=== PATIENT | female | born 1945 | race Caucasian/White ===

== ENCOUNTER 2018-04-27 09:39 | Day surgery (SDC) | payer MEDICARE, MEDICAID ==
[2018-04-27] VITALS (12 sets, daily range): BP systolic 125–153; BP diastolic 64–87
[~2018-04-27] VITALS: Ht 157.5 cm; Wt 88.4 kg
[2018-04-27] MEDS ORDERED: dextrose ORAL solution 15 GM/59 ML bottle PO PRN ×2 (10:05)
[2018-04-27] MEDS ORDERED: nitroGLYCERIN 0.4mg SUBLingual tab SL PRN (10:05)
[2018-04-27] MEDS ORDERED: insulin Lispro (HumaLOG) vial - multi-dose SQ SCH (10:05)
[2018-04-27] MEDS ORDERED: diphenhydrAMINE 25mg capsule PO PRN (10:05)
[2018-04-27] MEDS ORDERED: glucagon, human recombinant 1mg kit SUBCUT PRN (10:05)
[2018-04-27] MEDS ORDERED: LORazepam 0.5 MG tablet PO PRN (10:05)
[2018-04-27] MEDS ORDERED: MESSAGE TO PHARMACY PO ONE (10:05)
[2018-04-27] MEDS ORDERED: dextrose 50%-water 50ml dispensing syringe IV PRN ×2 (10:05)
[2018-04-27] MEDS ORDERED: INSU300I SQ (10:49)
[2018-04-27] MEDS ORDERED: FLUT1AER INH (10:49)
[2018-04-27] MEDS ORDERED: ALBU8.5H8 INH (10:49)
[2018-04-27] MEDS ORDERED: CYCL-394 PO (10:49)
[2018-04-27] MEDS ORDERED: ISOS20TA6 PO (10:49)
[2018-04-27] MEDS ORDERED: CHLO25TA2 PO (10:49)
[2018-04-27] MEDS ORDERED: ISOS40TA17 PO (10:49)
[2018-04-27 11:34] LABS: HEMOGLOBIN 15.3 g/dl (12.0-16.0); MEAN PLATELET VOLUME 7.5 FL (7.4-10.4); RED BLOOD COUNT 5.07 X10'6 (4.20-5.60); RED CELL DISTRIBUTION WIDTH 13.2 % (11.5-14.5)
[2018-04-27 11:38] LABS: BASOPHILS % (AUTO) 0.6 % (0-1); EOSINOPHILS # (AUTO) 0.1 X10'3 (0-0.9); EOSINOPHILS % (AUTO) 1.8 % (0-6); HEMATOCRIT 44.4 % (35.0-45.0); LYMPHOCYTES # (AUTO) 2.4 X10'3 (1.1-4.8); LYMPHOCYTES % (AUTO) 32.6 % (21-51); MEAN CORPUSCULAR HEMOGLOBIN 30.1 PG (27.0-31.0); MEAN CORPUSCULAR HGB CONC 34.4 % (33.0-36.5); MEAN CORPUSCULAR VOLUME 87.5 FL (78-98); MONOCYTES # (AUTO) 0.7 X10'3 (0-0.9); MONOCYTES % (AUTO) 9.2 % (2-12); NEUTROPHILS # (AUTO) 4.1 X10'3 (1.8-7.7); NEUTROPHILS % (AUTO) 55.8 % (42-75); PLATELET COUNT 279 X10'3 (140-440); WHITE BLOOD COUNT 7.4 X10'3 (4.5-11.0)
[2018-04-27 11:43] LABS: ANION GAP 11 (8-16); BLOOD UREA NITROGEN 20 MG/DL (7-18); BUN/CREATININE RATIO 24.1 (6.6-38.0); CALCIUM 9.3 MG/DL (8.5-10.1); CHLORIDE 99 MMOL/L (99-107); CREATININE 0.83 MG/DL (0.40-0.90); GLUCOSE 315 MG/DL (70-104); POTASSIUM 3.3 MMOL/L (3.5-5.1); SODIUM 137 MMOL/L (135-145); TOTAL CARBON DIOXIDE 26.9 MMOL/L (24-32); eGFR 68 ML/MIN
[2018-04-27 11:44] LABS: PARTIAL THROMBOPLASTIN TIME 23 SECONDS (22-32); PROTHROMBIN TIME 9.9 SECONDS (9.0-12.0)
[2018-04-27] MEDS: normal saline 1000ml 1,000 ML IV SCH ×2 (11:49→20:05)
[2018-04-27 12:29] LABS: HEMOGLOBIN A1C 10.6 % (4.5-6.2)
[2018-04-27] MEDS ORDERED: iohexol 350MG/ML 100ml bottle IV ONE (13:08)
[2018-04-27] MEDS ORDERED: iohexol 350 MG/ML 50ML vial IV ONE (13:08)
[2018-04-27] MEDS ORDERED: fentaNYL/PF 50MCG/1 ML 2ML syringe ONE ×2 (13:08→14:04)
[2018-04-27] MEDS ORDERED: midazolam 2 mg/2 ml injection ONE ×2 (13:08→14:09)
[2018-04-27] MEDS ORDERED: LIDOcaine 1% 30ml preserv. free vial ONE (13:09)
[2018-04-27] MEDS ORDERED: pneumococcal 23-VAL P-sac vacc 25 mcg/0.5ml vial IMVAC ONE (19:20)
[2018-04-27] MEDS ORDERED: albuterol 2.5 MG/3 ML nebule NEB PRN (19:55)
[2018-04-27] MEDS ORDERED: proCHLORperazine 10 MG/2 ml inj IV PRN (20:05)
[2018-04-27] MEDS ORDERED: HYDROcodone/acetaminophen 5mg/325mg tablet PO PRN (20:05)
[2018-04-27] MEDS ORDERED: OXAZEpam 15mg capsule PO PRN (20:05)
[2018-04-27] MEDS ORDERED: HYDROcodone/acetaminophen 10/325mg tab PO PRN (20:05)
[2018-04-27] MEDS ORDERED: ondansetron/PF 4mg/2ml inj IV PRN (20:05)
[2018-04-27] MEDS ORDERED: cyclobenzaprine 10mg tablet PO SCH (21:00)
[2018-04-27] MEDS ORDERED: insulin glargine (Lantus) pen - multi-dose SQ SCH (21:00)
[2018-04-27] MEDS: BUDESONIDE 0.25 MG/2 ML AMPUL.NEB IH SCH (21:00)
[2018-04-28 06:00] VITALS: BP 160/65
[2018-04-28] MEDS: normal saline 1000ml 1,000 ML IV SCH (06:05)
[2018-04-28 06:50] LABS: ALANINE AMINOTRANSFERASE 35 U/L (12-78); ALBUMIN 3.4 G/DL (3.4-5.0); ALKALINE PHOSPHATASE 80 IU/L (46-116); ANION GAP 8 (8-16); ASPARTATE AMINO TRANSFERASE 21 U/L (10-37); BILIRUBIN,TOTAL 0.7 MG/DL (0.1-1.0); BLOOD UREA NITROGEN 12 MG/DL (7-18); BUN/CREATININE RATIO 17.9 (6.6-38.0); CALCIUM 8.7 MG/DL (8.5-10.1); CHLORIDE 100 MMOL/L (99-107); CHOL/HDL RATIO 2.8 (0.00-4.99); CHOLESTEROL 149 MG/DL (0-200); CREATININE 0.67 MG/DL (0.40-0.90); GLUCOSE 265 MG/DL (70-104); HDL CHOLESTEROL 53 MG/DL (35-60); LDL CHOLESTEROL 91 MG/DL (50-100); POTASSIUM 3.1 MMOL/L (3.5-5.1); SODIUM 138 MMOL/L (135-145); TOTAL CARBON DIOXIDE 29.6 MMOL/L (24-32); TOTAL PROTEIN 6.7 G/DL (6.4-8.2); TRIGLYCERIDES 41 MG/DL (20-135); eGFR 87 ML/MIN
[2018-04-28] MEDS: albuterol 2.5 MG/3 ML nebule NEB SCH ×2 (07:00→13:02)
[2018-04-28] MEDS: ISOSORBIDE MONONITRATE 20 MG PO SCH ×2 (08:00→08:17)
[2018-04-28] MEDS ORDERED: chlorthalidone 25mg tablet PO SCH (08:00)
[2018-04-28] MEDS: BUDESONIDE 0.25 MG/2 ML AMPUL.NEB IH SCH (09:00)
[2018-04-28 11:00] VITALS: BP 139/67
[2018-04-28] MEDS ORDERED: potassium Cl 20 mEq SR tablet PO STA (12:04)
== END 2018-04-28 14:25 | disposition home or self-care (01) ==
LOC: SSTAY O 09:39 → PCU 3S 20:40 → SSTAY O 04-28 14:25
PROVIDERS: ATTEND Internal Medicine Cardiovascular Disease
DX: I25.10 Atherosclerotic heart disease of native coronary artery without angina pectoris (principal); Z23 Encounter for immunization; G89.29 Other chronic pain; I45.2 Bifascicular block; I10 Essential (primary) hypertension; M19.90 Unspecified osteoarthritis, unspecified site; M79.7 Fibromyalgia; G47.33 Obstructive sleep apnea (adult) (pediatric); E11.9 Type 2 diabetes mellitus without complications; Z90.49 Acquired absence of other specified parts of digestive tract; Z87.01 Personal history of pneumonia (recurrent); Z87.440 Personal history of urinary (tract) infections; Z79.4 Long term (current) use of insulin; Z88.2 Allergy status to sulfonamides; Z86.73 Personal history of transient ischemic attack (TIA), and cerebral infarction without residual deficits; Z85.828 Personal history of other malignant neoplasm of skin; Z79.899 Other long term (current) drug therapy; Z98.890 Other specified postprocedural states
CPT/HCPCS: 36415; 71046; 80048; 80053; 80061; 82948; 83036; 85025; 85610; 85730; 90732; 93005; 93458; 93926; 94640; 94760; 99152; 99153; A6257; A6449; C1760; C1769; J1644; J2250; J3010; J3490; J7030; Q0163; Q9967; A4620; J1815